=== PATIENT | female | born 1965 | race Caucasian/White ===

== ENCOUNTER 2020-08-04 17:25 | Emergency (ER) | payer OTHER ==
[~2020-08-04 17:25] MED LIST: BUSPAR 10MG10 MG PO; COMPACT COMPRE1 EACH MC; DOXYCYCLINE HY100 M2 PO; IBUPROFEN600 MG PO; IPRAT-ALBUT 0.5-3 ML INH; MEDROL4 MG PO; PROZAC 20 MG CA20 MG PO; PROZAC10 MG PO; TESSALON PERLE100 MG PO; TRAZODONE HCL50 MG PO; VISTARIL25 MG PO; ZANAFLEX4 M1 PO; ZOFRAN4 MG PO
[2020-08-04] MEDS ORDERED: HYDROCODON-ACE1 EAC2 PO (18:51)
== END 2020-08-04 20:40 | disposition home or self-care (01) ==
LOC: ER1 17:25
DX: S82.51XA Displaced fracture of medial malleolus of right tibia, initial encounter for closed fracture (principal); S82.831A Other fracture of upper and lower end of right fibula, initial encounter for closed fracture; J44.9 Chronic obstructive pulmonary disease, unspecified; Z23 Encounter for immunization; W10.1XXA Fall (on)(from) sidewalk curb, initial encounter
CPT/HCPCS: 29515; 73610; 73620; 90715; 99283